=== PATIENT | female | born 1995 | race Caucasian/White ===

== ENCOUNTER → 2019-08-26 | Outpatient (CLI) | payer BC ==
--- NOTE | 2019-08-27 08:36 | US ---
EXAMINATION TYPE: US thyroid st tissue head/neck DATE OF EXAM: 08/26/2019 COMPARISON: NONE CLINICAL HISTORY: I88.9 Lymphadenitis, unspecified,. Cervical lymphadenitis. Palpable area left neck posterior to left ear x 1 year. TECHNIQUE/FINDINGS: Grayscale and color ultrasound imaging was performed of the palpable area left ne ck posterior to left ear. Hypoechoic areas with hyperechoic centers and vascularity seen. These appea r as nonenlarged lymph nodes. The largest measures: 1.3 x 0.7 x 0.4 cm. Scanned right neck posterior to right ear for comparison. Hypoechoic area with hyperechoic center (al so appearing as lymph nodes) and vascularity seen measurin.2 x 1.0 x 0.4 cm. IMPRESSION: Bilateral nonenlarged lymph nodes. If there is clinical interval growth repeat imaging could be perfo rmed.
== END | disposition home or self-care (01) ==
LOC: RADUSWWP 17:05
PROVIDERS: ATTEND Family Medicine
DX: I88.9 Nonspecific lymphadenitis, unspecified (principal)
CPT/HCPCS: 76536

== ENCOUNTER → 2021-02-25 | Outpatient (CLI) | payer BC | END | disposition home or self-care (01) ==

== ENCOUNTER → 2021-05-04 | Outpatient (CLI) | payer BC ==
--- NOTE | 2021-05-04 12:34 | CT ---
EXAMINATION TYPE: CT soft tissue neck w con DATE OF EXAM: 05/04/2021 8:51 AM COMPARISON: None HISTORY: Left neck mass CT DLP: 309.60 mGycm Automated exposure control for dose reduction was used. CONTRAST: CT scan of the neck is performed following with IV Contrast, patient injected with 100 ml mL of Isovu e 300. Axial images are obtained, coronal and sagittal reformatted images are reviewed. FINDINGS: Possible thymic remnant present overlying the anterior mediastinum and is partially visuali zed Airway: No gross abnormality seen. Parotid/submandibular glands: No gross abnormality seen. There is an overlying marker at the site of patient's palpable abnormality. No underlying enlarged nodes. Carotid/Vascular Structures: Unremarkable Osseous Structures: Within normal limits0 Other: Probable mucus retention cyst noted incidentally in the left maxillary sinus IMPRESSION: Probable normal lymph node corresponding to patient's palpable abnormality
== END | disposition home or self-care (01) ==
LOC: RADCTMAIN 08:07
PROVIDERS: ATTEND Otolaryngology
DX: R22.1 Localized swelling, mass and lump, neck (principal)
CPT/HCPCS: 70491; Q9967

== ENCOUNTER → 2024-11-20 | Outpatient (CLI) | payer BC ==
--- NOTE | 2024-11-20 15:42 | US ---
EXAMINATION TYPE: US abdomen complete DATE OF EXAM: 11/20/2024 COMPARISON: NONE CLINICAL INDICATION: Female, 29 years old with history of R10.13 EPIGASTRIC PAIN; Epigastric pain TECHNIQUE: Grayscale and color Doppler imaging of the abdomen was performed. FINDINGS: EXAM MEASUREMENTS: Liver Length: 18.7 cm Gallbladder Wall: 0.1 cm CBD: 0.3 cm, color Doppler imaging was utilized to isolate the common bile duct for measurement. Spleen: 9.9 cm Right Kidney: 11.3 x 4.7 x 3.9 cm Left Kidney: 10.2 x 5.2 x 4.6 cm Pancreas: wnl Liver: Right lobe echogenic nonvascular lesion = 1.1 x 1.1 x 1.0 cm, suspected hepatic hemangioma. Gallbladder: wnl Evidence for sonographic Arriaga's sign: neg CBD: wnl Spleen: wnl Right Kidney: Small extrarenal pelvis. No hydronephrosis. Left Kidney: wnl, No hydronephrosis, calculi or masses seen Upper IVC: wnl Abd Aorta: No AAA visualized at time of scan IMPRESSION: 1. A 1.1 cm echogenic lesion within the right hepatic lobe, suspected benign hepatic hemangioma. Ayan mmend 6 month follow-up liver ultrasound to reassess. 2. No gallstones or biliary ductal dilatation. [facility], , 11/20/2024 3:40 PM
== END | disposition home or self-care (01) ==
LOC: RADUSWWP 14:02
PROVIDERS: ATTEND Family Medicine
DX: K76.89 Other specified diseases of liver (principal)
CPT/HCPCS: 76700